=== PATIENT | female | born 1960 | race Caucasian/White ===

== ENCOUNTER → 2017-03-03 | Outpatient (CLI) | payer BC ==
[~2017-03-03] MED LIST: ALBUAER2 INH; ASTN; CLON0.252 PO; EST5 PO; ESTR1CRE PV; LEVO112T4 PO; NSNN50 NAE; OMEP20CA9 PO; SIMV-150 PO; WLLXL300 PO
--- NOTE | 2017-03-04 13:15 | MAMMOGRAPHY REPORT ---
BILATERAL DIGITAL SCREENING MAMMOGRAM TOMOSYNTHESIS WITH CAD: 03/03/2017 CLINICAL HISTORY: Routine screening. Patient has no complaints. TECHNIQUE: Breast tomosynthesis in addition to standard 2D mammography was performed. Current study was also evaluated with a Computer Aided Detection (CAD) system. COMPARISON: Comparison is made to exams dated: 02/22/2016 mammogram, 02/20/2015 mammogram, 02/15/2014 ma mmogram, 02/05/2013 mammogram, 02/03/2012 mammogram, and 01/30/2011 mammogram - [facility] enter. BREAST COMPOSITION: The tissue of both breasts is heterogeneously dense, which may obscure small ma sses. FINDINGS: There is a possible 7 mm mass in the approximate 8:00 middle one third of the right breas t, for which additional spot compression to most of the cysts views and targeted ultrasound are janet mmended. There are scattered benign-appearing coarse calcifications in the left breast. No other suspicious mass, architectural distortion or cluster of suspicious microcalcifications is seen. IMPRESSION: ACR BI-RADS CATEGORY 0: INCOMPLETE EVALUATION: NEED ADDITIONAL IMAGING EVALUATION The possible 7 mm mass in the right breast needs additional evaluation. The patient will be called to schedule an appointment. Approximately 10% of breast cancers are not detected with mammography. A negative mammographic repor t should not delay biopsy if a clinically suggestive mass is present. Carol Sal M.D. ay/:03/03/2017 17:05:39 X Ray Developer: Ree Mcgee, [facility] letter sent: Addl Imaging 0 BI-RADS Code: ACR BI-RADS Category 0: Incomplete Evaluation: Need Additional Imaging Evaluation
== END | disposition home or self-care (01) ==
LOC: C.MAMM 15:45
PROVIDERS: ATTEND Obstetrics & Gynecology
DX: Z12.31 Encounter for screening mammogram for malignant neoplasm of breast (principal)

== ENCOUNTER → 2017-03-12 | Outpatient (CLI) | payer BC, OTHER ==
--- NOTE | 2017-03-12 15:10 | MAMMOGRAPHY REPORT ---
UNILATERAL RIGHT DIGITAL DIAGNOSTIC MAMMOGRAM TOMOSYNTHESIS AND TARGETED RIGHT ULTRASOUND: 03/12/2017 CLINICAL HISTORY: 56-year-old woman called back from screening mammography for a possible mass in th e 8:00 right breast. No family history of breast cancer. Patient taking hormone replacement therap y. TECHNIQUE: Spot compression right CC and MLO tomosynthesis images were obtained. COMPARISON: Comparison is made to exams dated: 03/03/2017 mammogram, 02/22/2016 mammogram, 02/20/2015 ma mmogram, 02/15/2014 mammogram, 02/15/2013 mammogram, and 02/15/2013 ultrasound - [facility]. BREAST COMPOSITION: The tissue of the right breast is heterogeneously dense, which may obscure smal l masses. FINDINGS: Spot compression tomosynthesis images of the right breast demonstrate persistence of a lob ulated partially circumscribed bilobed 8 mm mass in the lateral middle one third of the breast on th e cc views, and 2 possible lobulated masses in the middle one third of the breast on the spot compre ssion MLO views, measuring 6.7 x 9.7 and 11 x 4.9 mm. No cyst it architectural distortion or microc alcification. Further evaluation with ultrasound was performed. Targeted ultrasound was performed in the lateral right breast with particular attention to the 8:00 and 9:00 axes. In the 8:00 breast, 5 cm from the nipple, there is a multilobulated predominantly an echoic cystic appearing mass with a few thin internal nonvascular septations and/or debris measuring approximately 3.2 x 4.0 x 7.2 mm. A cyst cluster with multiple tiny anechoic spaces is seen in the adjacent 8:00 breast, 5 cm from the nipple, measuring 7.3 x 3.2 x 6.1 mm. These likely correlate w ith the possible mass/masses seen mammographically. Given that they do not meet the criteria for a benign simple cyst, a short interval follow-up diagnostic right mammogram and repeat targeted ultras ound is recommended to ensure stability in 6 months. IMPRESSION: ACR-BI-RADS CATEGORY 3: PROBABLY BENIGN, TARGETED ULTRASOUND ACR-BI-RADS CATEGORY 3: IL OBABLY BENIGN There is a benign appearing cyst with internal debris and septations and a probable cyst cluster in the 8:00 right breast, 5 cm from the nipple that are thought to correlate with the possible mammogra phic mass described on screening mammography. These masses are most likely benign, representing cys ts, but a short interval follow-up diagnostic right mammogram including tomosynthesis images and rep eat targeted ultrasound is recommended to ensure stability in 6 months. These results and recommendations were discussed with the patient at the time of the exam. She tent atively scheduled the follow-up appointment prior to leaving our department. Approximately 10% of breast cancers are not detected with mammography. A negative mammographic repor t should not delay biopsy if a clinically suggestive mass is present. Carol Sal M.D. ay/:03/12/2017 12:47:50 Chief Creative Officer: Emily Hollis RT(R)(M), [facility] letter sent: Follow Up Recommended 3 BI-RADS Code: ACR-BI-RADS Category 3: Probably Benign Ultrasound BI-RADS: ACR-BI-RADS Category 3: P robably Benign
== END | disposition home or self-care (01) ==
LOC: C.MAMM 09:10
PROVIDERS: ATTEND Obstetrics & Gynecology
DX: R92.2 Inconclusive mammogram (principal); N63 Unspecified lump in breast

== ENCOUNTER → 2017-09-15 | Outpatient (CLI) | payer BC ==
--- NOTE | 2017-09-15 15:13 | MAMMOGRAPHY REPORT ---
UNILATERAL RIGHT DIGITAL DIAGNOSTIC MAMMOGRAM TOMOSYNTHESIS WITH CAD AND TARGETED RIGHT ULTRASOUND: 1 11/15/2016 CLINICAL HISTORY: 57-year-old woman presents for follow-up in the right breast for a benign-appearing partially circumscribed mass in the lateral breast mammographically thought to correlate with a comp licated cyst or cluster of microcysts on ultrasound seen in the 8:00 axis. TECHNIQUE: Right breast tomosynthesis in addition to standard 2D mammography was performed. Current s tra was also evaluated with a Computer Aided Detection (CAD) system. COMPARISON: Comparison is made to exams dated: 03/12/2017 ultrasound, 03/12/2017 mammogram, 03/03/2017 mammogram, 02/22/2016 mammogram, 02/20/2015 mammogram, and 02/15/2014 mammogram - [facility]. BREAST COMPOSITION: The tissue of the right breast is heterogeneously dense, which may obscure small masses. FINDINGS: Again seen is a lobulated and partially circumscribed, 6.3 x 6.7 x 4.9 mm mass in the appro ximate 8:00 middle one third of the right breast. No associated architectural distortion or microcal cification. This mass is unchanged comparing to the prior diagnostic mammogram dated 03/12/2017 and most likely represents a benign complicated cyst. No other obvious mass, focal area of architectural distortion, asymmetry or suspicious macrocalcifications are seen in the right breast. Targeted ultrasound was performed in the lateral right breast with particular attention to the 8:00 a xis. In the 8:00 right breast, 5 cm from the nipple, a lobulated parallel predominantly anechoic cys t is again seen, measuring 3.8 x 4.2 x 8.0 mm. This correlates with the mammographic lobulated mass and has not significantly changed comparing to the prior ultrasound dated 03/12/2017. A microcyst cl uster is seen in the adjacent 8:00 right breast, 5 cm from the nipple, measuring 7.9 x 4.1 x 5.5 mm. IMPRESSION: ACR-BI-RADS CATEGORY 3: PROBABLY BENIGN, TARGETED ULTRASOUND ACR-BI-RADS CATEGORY 3: PRO BABLY BENIGN Stable mammographic appearance of the right breast including a benign-appearing a lobulated and parti ally circumscribed 7 mm mass in the 8:00 axis, thought to correlate with a complicated cyst on ultras ound. This complicated cyst and adjacent microcyst cluster in the 8:00 right breast, 5 cm from the n ipple and ultrasound have not significantly changed comparing to the 03/12/2017 ultrasound and most l ikely represent benign fibrocystic change. Another short interval follow-up right diagnostic tomosyn thesis mammogram and repeat targeted ultrasound is recommended to ensure at least one year of stabili ty given the comment located nature of breast cysts. Annual left mammography will also be due at melva t time. These results and recommendations were discussed with the patient and her at the time of the exam. Approximately 10% of breast cancers are not detected with mammography. A negative mammographic report should not delay biopsy if a clinically suggestive mass is present. Carol Sal M.D. ay/:09/15/2017 08:21:59 Distillation Operator: Sirisha CLARK)([place]), [facility] letter sent: Follow Up Recommended 3 BI-RADS Code: ACR-BI-RADS Category 3: Probably Benign Ultrasound BI-RADS: ACR-BI-RADS Category 3: Pr obably Benign
== END | disposition home or self-care (01) ==
LOC: C.MAMM 07:48
PROVIDERS: ATTEND Obstetrics & Gynecology
DX: N63.13 Unspecified lump in the right breast, lower outer quadrant (principal)